=== PATIENT | female | born 1990 | race Caucasian/White ===

== ENCOUNTER → 2017-12-31 17:12 | Outpatient (CLI) | payer MEDICAID ==
[2014-11-03 05:33] VITALS: BMI 37.3
[~2017-12-31 17:12] MED LIST: ADDERALL 30 MG30 MG PO; CYCLOBENZAPRINE10 MG PO; FERROUS SULFAT325 MG PO; HYDROCODONE-APA1 TAB PO; IBUPROFEN600 MG PO; KLONOPIN0.5 MG PO; NORMODYNE / TR100 MG PO; PRENATAL COMPLE1 TAB PO; ROBAXIN500 MG PO; TYLENOL W/CODEI1 TAB PO; VOLTAREN75 MG PO
== END | disposition home or self-care (01) ==
LOC: D.MRI 12-30 17:30
DX: M25.511 Pain in right shoulder (principal)

== ENCOUNTER 2018-01-01 23:30 | Emergency (ER) | payer MEDICAID ==
[~2018-01-01] VITALS: Ht 165.1 cm; Wt 64.5 kg
[~2018-01-01 23:30] MED LIST changes: -ADDERALL 30 MG30 MG PO; -CYCLOBENZAPRINE10 MG PO; -KLONOPIN0.5 MG PO; -ROBAXIN500 MG PO; -TYLENOL W/CODEI1 TAB PO; -VOLTAREN75 MG PO
[2018-01-01 23:31] VITALS: Ht 165.1 cm; Wt 64.5 kg
[2018-01-01] MEDS ORDERED: KLONOPIN0.5 MG PO (23:33)
[2018-01-01] MEDS ORDERED: ROBAXIN500 MG PO (23:33)
[2018-01-01] MEDS ORDERED: TYLENOL W/CODEI1 TAB PO (23:33)
[2018-01-02] MEDS ORDERED: VOLTAREN75 MG PO (00:14)
[2018-01-02] MEDS ORDERED: CYCLOBENZAPRINE10 MG PO (00:14)
[2018-01-02 00:32] VITALS: BP 135/93
== END 2018-01-02 00:30 | disposition home or self-care (01) ==
LOC: D.ER 23:30
DX: M25.511 Pain in right shoulder (principal); F17.200 Nicotine dependence, unspecified, uncomplicated

== ENCOUNTER 2018-01-24 15:42 | Emergency (ER) | payer MEDICAID ==
[~2018-01-24] VITALS: Ht 165.1 cm; Wt 62.7 kg
[~2018-01-24 15:42] MED LIST changes: +CYCLOBENZAPRINE10 MG PO; +KLONOPIN0.5 MG PO; +ROBAXIN500 MG PO; +TYLENOL W/CODEI1 TAB PO; +VOLTAREN75 MG PO
[2018-01-24 16:15] VITALS: Ht 165.1 cm; Wt 62.7 kg
[2018-01-24] MEDS ORDERED: ADDERALL 30 MG30 MG PO (16:17)
[2018-01-24 17:47] LABS: BASOPHILS 0.3 % (0-2); EOSINOPHILS 2.1 % (0-7); HEMATOCRIT 39.5 % (36.0-48.0); HEMOGLOBIN 13.4 g/dL (12-16); IMMATURE GRANULOCYTES 0.3 % (0-5); LYMPHOCYTES 36.4 % (15-50); MCH 29.5 pg (26.0-34.0); MCHC 33.9 g/dL (31.0-37.0); MCV 86.8 fL (80.0-100.0); MEAN PLATELET VOLUME 9.5 fL (7.4-10.4); MONOCYTES 9.5 % (2-11); NEUTROPHILS 51.4 % (40-80); PLATELET COUNT 344 10x3/uL (130-400); RBC 4.55 10x6/uL (4.00-5.40); RDW 14.1 % (11.5-14.5); WBC 14.2 10x3/uL (4.8-10.8)
[2018-01-24 18:15] LABS: ALBUMIN 3.5 g/dL (3.4-5.0); ALKALINE PHOSPHATASE 59 U/L (46-116); ALT (SGPT) 18 U/L (10-68); BILIRUBIN - TOTAL 0.52 mg/dL (0.2-1.3); CALC OSMOLALITY 282 mosm/kg (275-300); CALCIUM 8.7 mg/dL (8.5-10.1); CHLORIDE - SERUM 105 mmol/L (98-107); CREATININE - SERUM 0.8 mg/dL (0.6-1.3); GLUCOSE 84 mg/dL (74-106); POTASSIUM - SERUM 3.2 mmol/L (3.5-5.1); PROTEIN - SERUM 6.5 g/dL (6.4-8.2); SODIUM 141 mmol/L (136-145); UREA NITROGEN 20 mg/dL (7-18); eGFR NON AFRICAN AMERICAN 90 mL/min (90-120)
[2018-01-24 19:21] LABS: APPEARANCE CLEAR (CLEAR); BILIRUBIN NEGATIVE (NEGATIVE); COLOR YELLOW (YELLOW); GLUCOSE NEGATIVE (NEGATIVE); KETONE NEGATIVE (NEGATIVE); NITRITE NEGATIVE (NEGATIVE); PROTEIN NEGATIVE (NEGATIVE); UROBILINOGEN NORMAL (NORMAL)
[2018-01-24 19:37] LABS: UDS - AMPHET POSITIVE QUAL (NEGATIVE); UDS - BARB NEGATIVE QUAL (NEGATIVE); UDS - BENZO POSITIVE QUAL (NEGATIVE); UDS - COCAINE NEGATIVE QUAL (NEGATIVE); UDS - OPIATE NEGATIVE QUAL (NEGATIVE); UDS - PCP NEGATIVE QUAL (NEGATIVE); UDS - THC POSITIVE QUAL (NEGATIVE)
[2018-01-24 21:28] VITALS: BP 112/74
== END 2018-01-24 21:29 | disposition home or self-care (01) ==
LOC: D.ER 15:42
PROVIDERS: Family Medicine
DX: R45.851 Suicidal ideations (principal); F15.10 Other stimulant abuse, uncomplicated; F13.10 Sedative, hypnotic or anxiolytic abuse, uncomplicated; F17.200 Nicotine dependence, unspecified, uncomplicated

== ENCOUNTER 2018-09-08 20:23 | Emergency (ER) | payer MEDICAID ==
[~2018-09-08] VITALS: Ht 165.1 cm; Wt 77.3 kg
[~2018-09-08 20:23] MED LIST changes: +ADDERALL 30 MG30 MG PO
[2018-09-08 20:28] VITALS: Ht 165.1 cm; Wt 77.3 kg
[2018-09-08 21:28] LABS: ALBUMIN 3.8 g/dL (3.4-5.0); ALKALINE PHOSPHATASE 64 U/L (46-116); ALT (SGPT) 19 U/L (10-68); BILIRUBIN - TOTAL 0.61 mg/dL (0.2-1.3); CALC OSMOLALITY 275 mosm/kg (275-300); CARBON DIOXIDE 25.2 mmol/L (21.0-32.0); CHLORIDE - SERUM 104 mmol/L (98-107); CREATININE - SERUM 0.9 mg/dL (0.6-1.3); GLUCOSE 86 mg/dL (74-106); POTASSIUM - SERUM 3.3 mmol/L (3.5-5.1); PROTEIN - SERUM 7.2 g/dL (6.4-8.2); SODIUM 139 mmol/L (136-145); UREA NITROGEN 11 mg/dL (7-18); eGFR NON AFRICAN AMERICAN 79 mL/min (90-120)
[2018-09-08 21:35] LABS: BASOPHILS 0.1 % (0-2); EOSINOPHILS 1.1 % (0-7); HEMOGLOBIN 12.1 g/dL (12-16); IMMATURE GRANULOCYTES 0.4 % (0-5); LYMPHOCYTES 23.8 % (15-50); MCH 29.8 pg (26.0-34.0); MCHC 33.6 g/dL (31.0-37.0); MCV 88.7 fL (80.0-100.0); MEAN PLATELET VOLUME 9.5 fL (7.4-10.4); MONOCYTES 6.4 % (2-11); NEUTROPHILS 68.2 % (40-80); PLATELET COUNT 368 10x3/uL (130-400); RBC 4.06 10x6/uL (4.00-5.40); RDW 13.4 % (11.5-14.5)
[2018-09-08 21:38] LABS: APTT 27.7 SECONDS (22.8-39.4); INR 1.07 (0.85-1.17); PROTIME 13.4 SECONDS (11.6-15.0)
[2018-09-08 21:39] LABS: CKMB 0.6 U/L (0.0-3.6); CREATINE KINASE 82 UL (21-215); D-DIMER-QUANTITATIVE 0.34 ug/mLFEU (0.20-0.54); PRO BNP 22 pg/mL (0-125)
[2018-09-08 21:48] LABS: TROPONIN-I < 0.017 ng/mL (0.000-0.060)
[2018-09-08] MEDS ORDERED: ALBUTEROL SULF8.5 GM INH (22:05)
[2018-09-08] MEDS ORDERED: PROTONIX40 MG PO (22:05)
[2018-09-08 22:10] VITALS: BP 123/87
== END 2018-09-08 22:11 | disposition home or self-care (01) ==
LOC: D.ER 20:23
PROVIDERS: Family Medicine
DX: J45.909 Unspecified asthma, uncomplicated (principal); K21.9 Gastro-esophageal reflux disease without esophagitis